=== PATIENT | male | born 1955 | race Caucasian/White ===

== ENCOUNTER 2024-04-24 15:20 | Emergency (ER) | payer MEDICARE, OTHER ==
[~2024-04-24] VITALS: Ht 172.7 cm; Wt 66.2 kg
[2024-04-24] MEDS ORDERED: Fluorescein Sod 1MG Opth Strips RIGHTEYE ONE (16:15)
[2024-04-24] MEDS ORDERED: Erythromycin 0.5% Opth Oint 1 gm RIGHTEYE ONE (16:35)
[2024-04-24] MEDS ORDERED: ERYT1OIN RIGHTEYE (16:37)
== END 2024-04-24 17:14 | disposition home or self-care (01) ==
LOC: ER 15:20
DX: H57.89 Other specified disorders of eye and adnexa (principal)
CPT/HCPCS: 99282; A9270